=== PATIENT | female | born 1990 | race Caucasian/White ===

== ENCOUNTER 2022-07-08 10:59 | Emergency (ER) | payer OTHER ==
[2022-07-08] MEDS ORDERED: Acetaminophen/HYDROcodone 325-10 MG Tab PO ONE (11:20)
[2022-07-08] MEDS ORDERED: Ondansetron 4 MG Tab.DIS PO ONE (11:20)
[2022-07-08] MEDS ORDERED: Ibuprofen 800 MG Tab PO ONE (11:37)
[2022-07-08] MEDS ORDERED: Diphtheria,Pertussis(Acell),Tetanus Vaccine 0.5 ML Syringe IM ONE (12:06)
[2022-07-08] MEDS ORDERED: Bacitracin Oint 1 GM U/D Packet TOP ONE (12:43)
== END 2022-07-08 12:31 | disposition home or self-care (01) ==
LOC: FB.ED 10:59
DX: T23.202A Burn of second degree of left hand, unspecified site, initial encounter (principal); Z23 Encounter for immunization; Z88.4 Allergy status to anesthetic agent; X08.8XXA Exposure to other specified smoke, fire and flames, initial encounter
CPT/HCPCS: 16020; 90471; 90715; 99283; A9270; Q0162